=== PATIENT | male | born 1995 | race Caucasian/White ===

== ENCOUNTER 2016-12-21 19:54 | Emergency (ER) | payer OTHER ==
[2016-12-21] MEDS ORDERED: LIDOCAINE 2% 20 ML ONE (21:03)
[2016-12-21] MEDS ORDERED: TDaP 0.5 ML VIAL IM.VACC ONE (21:59)
== END 2016-12-21 22:13 | disposition home or self-care (01) ==
LOC: ER 19:54
DX: S61.012A Laceration without foreign body of left thumb without damage to nail, initial encounter (principal); W26.0XXA Contact with knife, initial encounter; Y92.009 Unspecified place in unspecified non-institutional (private) residence as the place of occurrence of the external cause; Z23 Encounter for immunization
CPT/HCPCS: 90471